=== PATIENT | female | born 1950 | race Caucasian/White ===

== ENCOUNTER 2021-08-24 16:09 | Inpatient (IN) ==
[2021-08-24 17:19] LABS: Bilirubin,Urine Negative (Negative); Blood,Urine Negative (Negative); Clarity,Urine Clear (Clear); Color,Urine Light-Yellow (Yellow); Glucose,Urine (UA) Normal (Normal); Ketones,Urine Negative (Negative); Leukocyte Esterase,Urine Negative (Negative); Nitrite,Urine Negative (Negative); PH,Urine 6.5 pH Units (5.0-8.0); Protein,Urine Trace mg/dL (Neg-Trace); Specific Gravity,Urine 1.013 (1.010-1.025); Urobilinogen,Urine Normal (Normal)
[2021-08-24 17:24] LABS: Hematocrit 34.5 % (35.3-44.9); Hemoglobin 10.8 g/dL (11.5-15.4); Mean Corpuscular HGB Conc 31.3 g/dL (31.6-35.5); Mean Corpuscular Hemoglobin 26.2 pg (28.0-33.3); Mean Corpuscular Volume 83.5 fL (83.0-100.0); Mean Platelet Volume 9.5 fL (9.4-12.4); Platelet Count 265 K/mcL (140-400); Red Blood Count 4.13 M/mcL (3.82-4.97); Red Cell Distribution Width 17.3 % (11.5-14.5); Segmented Neutrophils % 88.2 %; White Blood Count 12.3 K/mcL (4.3-11.1)
[2021-08-24 17:25] LABS: Basophils % 0.2 %; Immature Granulocytes % 0.4 % (0-4); Lymphocytes # 0.4 K/mcL (0.6-4.6); Lymphocytes % 2.8 %; Monocytes % 8.4 %; Neutrophils # 10.9 K/mcL (1.6-8.9)
[2021-08-24 17:46] LABS: Alanine Aminotransferase 11 Units/L (7-52); Albumin/Globulin Ratio 1.1 (1.1-2.2); Alkaline Phosphatase 60 Units/L (34-104); Aspartate Amino Transferase 18 Units/L (13-39); BUN/Creatinine Ratio 19 (6-26); Bilirubin,Indirect 0.4 mg/dL (0.0-1.0); Bilirubin,Total 0.4 mg/dL (0.3-1.0); Blood Urea Nitrogen 20 mg/dL (8-23); Calcium 9.2 mg/dL (8.6-10.3); Carbon Dioxide 25 mEq/L (23-29); Chloride 100 mEq/L (98-107); Globulin 3.7 g/dL (2.4-3.5); Glucose 104 mg/dL (70-105); Osmolality,Calculated 287 (280-300); Potassium 3.3 mEq/L (3.5-5.1); Sodium 137 mEq/L (136-145); Total Protein 7.7 g/dL (6.4-8.9); Troponin I 0.58 ng/mL (< 0.04); eGFR For African Americans > 60 (> 60); eGFR For Non-African Americans 50 (> 60)
[2021-08-24] MEDS ORDERED: Furosemide 20 MG/2 ML VIAL IVP ONE ×2 (17:52→23:36)
[2021-08-24] MEDS ORDERED: *HR* Heparin 5,000 UNIT/ML VIAL IVP PRN ×2 (17:52)
[2021-08-24] MEDS ORDERED: *HR* Heparin 5,000 UNIT/ML VIAL IVP ONE (17:52)
[2021-08-24] MEDS ORDERED: Heparin 25,000UNIT/250ML 1/2NS 25,000 UNIT/250 ML IV.SOLN IVC SCH (18:00)
[2021-08-24] MEDS ORDERED: Isovue-370 500 ML BOTTLE IVP ONE (18:04)
[2021-08-24 18:07] LABS: Influenza A PCR Negative (Negative); Influenza B PCR Negative (Negative); Resp. Syncytial Virus PCR Negative (Negative); SARS-CoV-2 by PCR (In House) Negative (Negative)
[2021-08-24] MEDS ORDERED: Ondansetron 4 MG/2 ML VIAL IVP PRN (20:29)
[2021-08-24] MEDS ORDERED: Acetaminophen 325 MG TABLET PO PRN (20:29)
[2021-08-24] MEDS ORDERED: Naloxone 0.4 MG/ML INJ IVP PRN (20:29)
[2021-08-24] MEDS ORDERED: Melatonin 3 MG TABLET PO PRN (20:29)
[2021-08-24] MEDS ORDERED: Azithromycin 250 MG TABLET PO SCH (21:00)
[2021-08-24] MEDS: Lactobacillus 1 EACH CAP.SPRINK PO SCH (21:11)
[2021-08-24] MEDS: cefTRIAXone 1,000 MG in 0.9 % Sodium Chloride Mini Bag 100 ML IVPB SCH (23:06)
[2021-08-24] MEDS ORDERED: Perflutren Lipid Microsphere 1.3 ML in 0.9 % Sodium Chloride 8.7 ML IVP PRN (23:33)
[2021-08-25 03:02] LABS: Basophils % 0.2 %; Eosinophils % 0.1 %; Hemoglobin 10.5 g/dL (11.5-15.4); Immature Granulocytes % 0.7 % (0-4); Lymphocytes # 0.8 K/mcL (0.6-4.6); Lymphocytes % 4.7 %; Mean Corpuscular HGB Conc 30.9 g/dL (31.6-35.5); Mean Corpuscular Hemoglobin 25.7 pg (28.0-33.3); Mean Corpuscular Volume 83.3 fL (83.0-100.0); Mean Platelet Volume 9.3 fL (9.4-12.4); Monocytes # 1.5 K/mcL (0.0-1.3); Monocytes % 9.1 %; Neutrophils # 13.8 K/mcL (1.6-8.9); Platelet Count 270 K/mcL (140-400); Red Blood Count 4.08 M/mcL (3.82-4.97); Red Cell Distribution Width 17.6 % (11.5-14.5); Segmented Neutrophils % 85.2 %; White Blood Count 16.2 K/mcL (4.3-11.1)
[2021-08-25 03:13] LABS: Estimated Average Glucose 128 mg/dl; Hemoglobin A1C 6.1 %; Heparin anti-factor XA UFH 0.24 IU/mL (0.30-0.70); INR 2.9; Prothrombin Time 31.9 Seconds (9.4-12.1)
[2021-08-25 03:15] LABS: Activated Partial Thrombo Time 62.3 Seconds (26.0-36.0)
[2021-08-25] MEDS: Ipratropium/Albuterol Neb 3 ML IH SCH ×7 (03:17→23:59)
[2021-08-25 03:25] LABS: Albumin 3.9 g/dL (3.5-5.7); Albumin/Globulin Ratio 1.1 (1.1-2.2); Bilirubin,Total 0.5 mg/dL (0.3-1.0); Calcium 9.3 mg/dL (8.6-10.3); Chol/HDL Ratio 4.6 (0-4.9); Globulin 3.7 g/dL (2.4-3.5); Magnesium 1.7 mg/dL (1.6-2.6); Phosphorous 2.8 mg/dL (2.7-4.5); Potassium 3.6 mEq/L (3.5-5.1); Total Protein 7.6 g/dL (6.4-8.9)
[2021-08-25 03:40] LABS: Thyroid Stimulating Hormone 1.411 mcIU/mL (0.340-5.600); Troponin I 0.5 ng/mL (< 0.04)
[2021-08-25] MEDS ORDERED: Dextrose Gel 15 GM/37.5 ML TUBE PO PRN ×2 (06:06)
[2021-08-25] MEDS ORDERED: D5% in Water 1,000 ML IVC PRN (06:06)
[2021-08-25] MEDS ORDERED: *HR* Dextrose 50 % in Water (Syg) 50 ML SYRINGE IVP PRN (06:06)
[2021-08-25] MEDS: Budesonide/Formoterol 160/4.5 1 PUFF INH IH SCH ×2 (07:29→19:55)
[2021-08-25] MEDS ORDERED: Furosemide 20 MG/2 ML VIAL IVP SCH (08:00)
[2021-08-25] MEDS ORDERED: Azithromycin 500 MG in 0.9 % Sodium Chloride 250 ML IVPB SCH (08:00)
[2021-08-25] MEDS ORDERED: Spironolactone 25 MG TABLET PO SCH (09:00)
[2021-08-25] MEDS: Multivit/Ca/Min/Fe/FA 1 TAB TABLET PO SCH (09:28)
[2021-08-25] MEDS: Lactobacillus 1 EACH CAP.SPRINK PO SCH ×2 (09:28→20:46)
[2021-08-25] MEDS: Chlorhexidine Rinse 15 ML MOUTHWASH MM SCH ×2 (09:28→20:46)
[2021-08-25] MEDS: Aspirin 81 MG TAB.CHEW PO SCH (09:28)
[2021-08-25] MEDS: cefTRIAXone 1,000 MG in 0.9 % Sodium Chloride Mini Bag 100 ML IVPB SCH (09:29)
[2021-08-25] MEDS: carvediloL 6.25 MG TABLET PO SCH ×2 (09:29→16:56)
[2021-08-25] MEDS: Saline Nasal Spray 44 ML BOTTLE NS SCH ×4 (09:33→20:46)
[2021-08-25] MEDS: Artificial Tears SOLN 15 ML BOTTLE BOTH EYES SCH ×4 (09:33→20:46)
[2021-08-25] MEDS: Saliva Stimulant 44.3ml BOTTLE PO SCH ×4 (09:33→20:46)
[2021-08-25] MEDS: Macitentan [Opsumit] 10 MG PO SCH (11:00)
[2021-08-25] MEDS: SELEXIPAG PO SCH ×2 (11:00→20:45)
[2021-08-25] MEDS ORDERED: Heparin 25,000 UNIT/250 ML 25,000 UNIT/250 ML IV.SOLN IVC SCH (11:00)
[2021-08-25] MEDS: Tadalafil [Adcirca] 20 MG PO SCH ×2 (11:00→20:45)
[2021-08-25] MEDS ORDERED: Warfarin perPT PO PRN ×2 (18:00)
[2021-08-25] MEDS ORDERED: *HR* Warfarin 4 MG TABLET PO ONE (18:00)
[2021-08-26] MEDS: Ipratropium/Albuterol Neb 3 ML IH SCH ×6 (03:44→23:31)
[2021-08-26] MEDS: Doxycycline 100 MG CAPSULE PO SCH ×2 (04:33→17:33)
[2021-08-26 05:50] LABS: Basophils % 0.4 %; Eosinophils # 0.2 K/mcL (0.0-0.6); Eosinophils % 1.6 %; Hematocrit 30.6 % (35.3-44.9); Hemoglobin 9.5 g/dL (11.5-15.4); Immature Granulocytes % 0.5 % (0-4); Lymphocytes # 0.8 K/mcL (0.6-4.6); Lymphocytes % 7.3 %; Mean Corpuscular Hemoglobin 26.2 pg (28.0-33.3); Mean Corpuscular Volume 84.5 fL (83.0-100.0); Mean Platelet Volume 9.7 fL (9.4-12.4); Monocytes # 0.8 K/mcL (0.0-1.3); Neutrophils # 9.2 K/mcL (1.6-8.9); Platelet Count 265 K/mcL (140-400); Red Blood Count 3.62 M/mcL (3.82-4.97); Segmented Neutrophils % 83.2 %
[2021-08-26 05:56] LABS: INR 1.7; Prothrombin Time 19.4 Seconds (9.4-12.1)
[2021-08-26 06:30] LABS: BUN/Creatinine Ratio 18 (6-26); Blood Urea Nitrogen 17 mg/dL (8-23); Calcium 9.3 mg/dL (8.6-10.3); Carbon Dioxide 22 mEq/L (23-29); Chloride 103 mEq/L (98-107); Glucose 122 mg/dL (70-105); Osmolality,Calculated 287 (280-300); Potassium 3.3 mEq/L (3.5-5.1); Sodium 137 mEq/L (136-145); eGFR For African Americans > 60 (> 60); eGFR For Non-African Americans 57 (> 60)
[2021-08-26] MEDS: Budesonide/Formoterol 160/4.5 1 PUFF INH IH SCH ×2 (07:37→19:56)
[2021-08-26] MEDS: Chlorhexidine Rinse 15 ML MOUTHWASH MM SCH ×2 (07:55→20:56)
[2021-08-26] MEDS: Aspirin 81 MG TAB.CHEW PO SCH (07:56)
[2021-08-26] MEDS: Multivit/Ca/Min/Fe/FA 1 TAB TABLET PO SCH (07:56)
[2021-08-26] MEDS: carvediloL 6.25 MG TABLET PO SCH ×2 (07:56→17:33)
[2021-08-26] MEDS: Saliva Stimulant 44.3ml BOTTLE PO SCH ×4 (07:57→20:56)
[2021-08-26] MEDS: Saline Nasal Spray 44 ML BOTTLE NS SCH ×4 (07:57→20:56)
[2021-08-26] MEDS: Lactobacillus 1 EACH CAP.SPRINK PO SCH ×2 (07:57→20:56)
[2021-08-26] MEDS: Artificial Tears SOLN 15 ML BOTTLE BOTH EYES SCH ×4 (07:57→20:55)
[2021-08-26] MEDS: cefTRIAXone 1,000 MG in 0.9 % Sodium Chloride Mini Bag 100 ML IVPB SCH (07:58)
[2021-08-26] MEDS ORDERED: Spironolactone 25 MG TABLET PO SCH (09:00)
[2021-08-26] MEDS: Macitentan [Opsumit] 10 MG PO SCH (10:26)
[2021-08-26] MEDS: SELEXIPAG PO SCH ×2 (10:27→20:57)
[2021-08-26] MEDS: Tadalafil [Adcirca] 20 MG PO SCH ×2 (10:27→20:57)
[2021-08-26] MEDS: Torsemide 20 MG TABLET PO SCH (14:27)
[2021-08-26] MEDS ORDERED: *HR* Warfarin 4 MG TABLET PO ONE (18:00)
[2021-08-27] MEDS: Ipratropium/Albuterol Neb 3 ML IH SCH ×3 (03:48→11:21)
[2021-08-27] MEDS: Doxycycline 100 MG CAPSULE PO SCH (05:47)
[2021-08-27] MEDS: Saline Nasal Spray 44 ML BOTTLE NS SCH ×2 (06:58→10:39)
[2021-08-27] MEDS: Artificial Tears SOLN 15 ML BOTTLE BOTH EYES SCH ×2 (06:58→10:39)
[2021-08-27] MEDS: Saliva Stimulant 44.3ml BOTTLE PO SCH ×2 (06:58→10:39)
[2021-08-27] MEDS: Budesonide/Formoterol 160/4.5 1 PUFF INH IH SCH (07:49)
[2021-08-27 07:55] LABS: Basophils % 0.3 %; Eosinophils # 0.2 K/mcL (0.0-0.6); Eosinophils % 2.9 %; Hematocrit 30.1 % (35.3-44.9); Hemoglobin 9.2 g/dL (11.5-15.4); Immature Granulocytes % 0.3 % (0-4); Lymphocytes # 0.6 K/mcL (0.6-4.6); Lymphocytes % 8.5 %; Mean Corpuscular HGB Conc 30.6 g/dL (31.6-35.5); Mean Corpuscular Hemoglobin 26.4 pg (28.0-33.3); Mean Corpuscular Volume 86.5 fL (83.0-100.0); Mean Platelet Volume 9.5 fL (9.4-12.4); Monocytes # 0.6 K/mcL (0.0-1.3); Monocytes % 7.4 %; Neutrophils # 6.1 K/mcL (1.6-8.9); Platelet Count 254 K/mcL (140-400); Red Blood Count 3.48 M/mcL (3.82-4.97); Red Cell Distribution Width 18.1 % (11.5-14.5); Segmented Neutrophils % 80.6 %; White Blood Count 7.5 K/mcL (4.3-11.1)
[2021-08-27 08:02] LABS: INR 1.6; Prothrombin Time 18.2 Seconds (9.4-12.1)
[2021-08-27] MEDS: Multivit/Ca/Min/Fe/FA 1 TAB TABLET PO SCH (08:37)
[2021-08-27] MEDS: Aspirin 81 MG TAB.CHEW PO SCH (08:37)
[2021-08-27] MEDS: carvediloL 6.25 MG TABLET PO SCH (08:37)
[2021-08-27] MEDS: Torsemide 20 MG TABLET PO SCH (08:37)
[2021-08-27] MEDS: Lactobacillus 1 EACH CAP.SPRINK PO SCH (08:37)
[2021-08-27] MEDS: Chlorhexidine Rinse 15 ML MOUTHWASH MM SCH (08:37)
[2021-08-27] MEDS: Tadalafil [Adcirca] 20 MG PO SCH (08:39)
[2021-08-27] MEDS: Macitentan [Opsumit] 10 MG PO SCH (08:39)
[2021-08-27] MEDS: SELEXIPAG PO SCH (08:39)
[2021-08-27] MEDS: cefTRIAXone 1,000 MG in 0.9 % Sodium Chloride Mini Bag 100 ML IVPB SCH (08:41)
[2021-08-27 09:22] LABS: BUN/Creatinine Ratio 17 (6-26); Blood Urea Nitrogen 16 mg/dL (8-23); Calcium 8.9 mg/dL (8.6-10.3); Carbon Dioxide 22 mEq/L (23-29); Chloride 107 mEq/L (98-107); Glucose 101 mg/dL (70-105); Osmolality,Calculated 287 (280-300); Potassium 3.8 mEq/L (3.5-5.1); Sodium 138 mEq/L (136-145); eGFR For African Americans > 60 (> 60); eGFR For Non-African Americans > 60 (> 60)
[2021-08-27 11:05] VITALS: BP 127/77; PULSE 99; TEMP 99.1; O2SAT 93
[2021-08-27] MEDS ORDERED: *HR* Warfarin 4 MG TABLET PO ONE (18:00)
== END 2021-08-27 13:52 | disposition home or self-care (01) | DRG 871 ==
LOC: EMEROOARM 16:09 → 2ANU 16:09 → SUATTDRO 19:45 → 2ANU 21:10 → SUATTDRO 08-25 16:00
PROVIDERS: ADMIT Internal Medicine; ATTEND Internal Medicine